=== PATIENT | male | born 1985 | race African-American/Black ===

== ENCOUNTER 2019-08-13 08:16 | Emergency (ER) | payer MEDICAID, OTHER ==
[~2019-08-13] VITALS: Ht 188 cm; Wt 81.6 kg
[2019-08-13 09:09] VITALS: BP 133/73
== END 2019-08-13 12:14 | disposition home or self-care (01) ==
LOC: ER 08:33
DX: J06.9 Acute upper respiratory infection, unspecified (principal)

== ENCOUNTER 2025-02-27 02:21 | Emergency (ER) | payer MEDICAID ==
[~2025-02-27] VITALS: Ht 188 cm; Wt 82.0 kg
[2025-02-27 02:53] LABS: Potassium 4.0 mmol/L (3.5-5.1); Sodium 141 mmol/L (136-145)
[2025-02-27 02:54] LABS: Anion Gap 10 (5-15); Calcium 9.0 mg/dL (8.7-10.4); Carbon Dioxide 24 mmol/L (20-31)
--- NOTE | 2025-02-27 02:55 | ED.PDOC ---
History of Present Illness HPI Comments 39 y/o M presents with c/c nonradiating, left chest wall pressure. Patient endorses on sudden, unprovoked, and atraumatic onset of symptom, while at rest, this morning. Significant history of HLD and TIA. Patient expresses concern following recent TIA diagnosis 1-2x months ago during a 4-5x day hospital admi ssion visit for similar pressure-sensation, with associated shortness of breath, generalized left sided numbness, and blurry vision. He reports on being told on his 'left ventricle being enlarged' and having 'fluid in surrounding heart tissue' via echocardiogram he had during aforementioned admission then. 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 Denies having any shortness of breath, nausea, vomiting, fever, chills, or further associated symptoms. Chief Complaint: Chest Pain Time Seen by MD: 02:40 Primary Care Provider: UNKNOWN Reviewed Notes: Nurses Notes, Medications, Allergies Allergies: Coded Allergies: NO KNOWN ALLERGIES (Unverified , 08/13/19) Information Source: Patient Mode of Arrival: Ambulatory Severity: Moderate Timing: Hours Duration: Since onset Prehospital treatment: None Past Medical History PAST MEDICAL HISTORY: High Lipids (homeopathically managed), TIA Surgical History: Denies all surgeries Family History Family History: Unknown Social History Smoker: Non-Smoker Alcohol: Denies ETOH Use Drugs: Denies Drug Use Lives In: Home All Other Systems: Reviewed and Negative (Comprehensive systems review obtained and negative except for what is stated in the HPI.) Physical Exam General Appearance: No Apparent Distress, Normal HEENT: Normal ENT Inspection, Pharynx Normal, TMs Normal Neck: Full Range of Motion, Non-Tender, Normal, Normal Inspection Respiratory: Chest Non-Tender, Lungs Clear, No Accessory Muscle Use, No Respiratory Distress, Normal Breath Sounds Cardiovascular: No Edema, No JVD, No Murmur, No Gallop, Normal Peripheral Pulses, Regular Rate/Rhythm Breast Exam: Deferred Gastrointestinal: No Organomegaly, Non Tender, No Pulsatile Mass, Normal Bowel Sounds, Soft Genitalia: Deferred Pelvic: Deferred Rectal: Deferred Extremities: No calf tenderness, Normal capillary refill, Normal inspection, Normal range of motion, Non-tender, No pedal edema Musculoskeletal : Apperance: Normal Neurologic: Alert, shingle cutter II-XII nml as Tested, No Motor Deficits, Normal Affect, Normal Mood, No Sensory Deficits Cerebellar Function: Normal Reflexes: Normal Skin: Dry, Normal Color, Warm Lymphatic: No Adenopathy Was a procedure done? Was a procedure done?: No EKG EKG : Pulse Rate (adult): 65 [place]: Normal Cardiac Rhythm: NSR Block: None Hypertrophy: None ST: Normal Differential Dx Considerations may include: MS, PE, ACS, URI, PNA, angina, anxiety, pericarditis, gastritis, among others X-Ray, Labs, Meds, VS Vital Signs Date Time Temp Pulse Resp B/P (MAP) Pulse Ox O2 Delivery O2 Flow Rate FiO2 02/27/25 03:22 55 02/27/25 02:55 65 02/27/25 02:25 97.4 66 20 128/72 (90) 96 97.4 02/27/25 02:25 65 Lab Test 02/27/25 04:37 02/27/25 02:28 Range/Units Troponin I High Sensitivity Pending 7 </=54 ng/L White Blood Count 6.6 4.4-10.8 10^3/uL Red Blood Count 4.94 4.5-5.90 10^6/uL Hemoglobin 13.9 13.5-17.5 g/dL Hematocrit 41.7 41.0-53.0 % Mean Corpuscular Volume 84.3 80.0-100.0 fL Mean Corpuscular Hemoglobin 28.1 28.0-32.0 pg Mean Corpuscular Hemoglobin Concent 33.4 32.0-36.0 g/dL Red Cell Distribution Width 15.0 H 11.8-14.3 % Platelet Count 198 140-450 10^3/uL Mean Platelet Volume 9.0 6.9-10.8 fL Neutrophils (%) (Auto) 64.2 37.0-80.0 % Lymphocytes (%) (Auto) 21.0 10.0-50.0 % Monocytes (%) (Auto) 14.0 H 0.0-12.0 % Eosinophils (%) (Auto) 0.4 0.0-7.0 % Basophils (%) (Auto) 0.4 0.0-2.0 % Neutrophils # (Auto) 4.2 1.6-8.6 10 ^3/uL Lymphocytes # (Auto) 1.4 0.4-5.4 10 ^3/uL Monocytes # (Auto) 0.9 0-1.3 10 ^3/uL Eosinophils # (Auto) 0 0-0.8 10 ^3/uL Basophils # (Auto) 0 0-0.2 10 ^3/uL Nucleated Red Blood Cells 0.0 % Sodium Level 141 136-145 mmol/L Potassium Level 4.0 3.5-5.1 mmol/L Chloride Level 107 98-107 mmol/L Carbon Dioxide Level 24 20-31 mmol/L Anion Gap 10 5-15 Blood Urea Nitrogen 20 9-23 mg/dL Creatinine 1.44 H 0.700-1.30 mg/dL Glomerular Filtration Rate Calc 63 >90 mL/min BUN/Creatinine Ratio 13.9 10.0-20.0 Serum Glucose 100 74-106 mg/dL Calcium Level 9.0 8.7-10.4 mg/dL Time of 1ST Reevaluation: 03:10 Reevaluation 1ST: Unchanged Patient Education/Counseling: Diagnosis, Treatment, Need For Follow Up Family Education/Counseling: No Family Present Additional Information Previous visits reviewed: August 13, 2019 encounter for body pain The following tests were ordered, and results were reviewed by me: CXR, CBC, BMP, EKG, troponin Additional Information was gathered from interviewing the following independent historians: N/A I reviewed and agreed with the following test results read by other providers: CXR I discussed treatment and results with medical personnel and: patient SEPSIS Sepsis Screen Physician Orders Electrocardigram (02/27/25 05:22) Troponin-I Hs (02/27/25 03:22) Troponin-I Hs (02/27/25 05:22) Chest Portable (02/27/25 02:24) Vital Signs Date Time Temp Pulse Resp B/P (MAP) Pulse Ox O2 Delivery O2 Flow Rate FiO2 02/27/25 03:22 55 02/27/25 02:55 65 02/27/25 02:25 97.4 66 20 128/72 (90) 96 97.4 02/27/25 02:25 65 Laboratory Tests Test 02/27/25 02:28 White Blood Count 6.6 10^3/uL (4.4-10.8) Departure 1 Departure Time of Disposition: 05:01 (Patient presented with chest pain that was concerning for possible STEMI, ACS, PE, Pneumonia, Muscle Strain, COPD, Dissection. Data: 1. I ordered and reviewed the result of at least 3 labs including a CBC, BMP, and Troponin. 2. I independently interpreted the following tests: EKG which shows normal sinus rhythm and Chest X-ray which shows a benign chest.Risk:This patient presented with a high risk of morbidity due to further diagnostic testing or treatment and may suffer from an acute cardiac or respiratory disorder. After review of all the data patient is unlikely to have a pe , dissection, and is low risk for acs. Patient is stable at this time.Workup so far is benign and patient will be discharged with outpatient followup. ) Impression: Primary Impression: Acute chest pain Disposition: HOME / SELF CARE / HOMELESS Condition: Stable Additional Instructions: You presented today with chest pain. Your workup today was benign including labs, troponin, EKG, chest x-ray. Your pain may be from musculoskeletal strain, acid reflux, anxiety, or many other factors. It is important to follow up with your regular doctor within 1 week. If your symptoms worsen or you have any other concerns please return to the emergency room. Discharged With: Self Critical Care Note Critical Care Time?: No Stability Stability form required: No Heart Score Heart Score: Heart Score Response (Comments) Value History Slightly Suspicious 0 EKG Normal 0 Age <45 0 Risk Factors 1 or 2 risk factors 1 Troponin Normal limit 0 Total 1 I personally scribed for NIHARIKA FUENTES MD ([email or web address]) on 02/27/25 at 02:55. Electronically submitted by Dany Kim [email or web address]). NIHARIKA FUENTES MD Feb 27, 2025 02:55
[2025-02-27 02:59] LABS: BUN/Creatinine Ratio 13.9 (10.0-20.0); Blood Urea Nitrogen 20 mg/dL (9-23); Chloride 107 mmol/L (98-107); Glucose 100 mg/dL (74-106)
[2025-02-27 03:04] LABS: Hematocrit 41.7 % (41.0-53.0); Hemoglobin 13.9 g/dL (13.5-17.5); Mean Corpuscular Hemoglobin 28.1 pg (28.0-32.0); Mean Corpuscular Volume 84.3 fL (80.0-100.0); Nucleated Red Blood Cells % 0.0 %
--- NOTE | 2025-02-27 03:08 | DVH ---
CHEST RADIOGRAPH Indication: chest pain Technique: Single frontal view of the chest was obtained COMPARISON: None FINDINGS: Lines and Tubes: None Lungs: Clear Pleura: No effusion. No pneumothorax. Cardiomediastinal contours: Unremarkable Bones: Unremarkable IMPRESSION: 1. No acute disease.
--- NOTE | 2025-02-27 03:25 | ECG ---
[facility] Test Date: 2025-02-27 Test Time: 03:22:37 Pat Name: KIANA GREWAL Department: ED Room: Gender: M [employer] Credit Card Collection Clerk: LINDA : 1985 Requested By: EMERGENCY EMERGENCY Order Number: [id number] Reading MD: Alex Daniels Measurements Intervals [place] Rate: 55 P: 56 RI: 153 QRS: 78 QRSD: 150 T: 82 QT: 417 QTc: 399 Interpretive Statements Sinus rhythm IVCD, consider atypical RBBB Electronically Signed On 02-28-2025 16:59:39 PDT by Alex Daniels Please click the below link to view image of tracing.
--- NOTE | 2025-02-27 03:25 | ECG ---
[facility] Test Date: 2025-02-27 Test Time: 02:25:30 Pat Name: KIANA GREWAL Department: ED Room: Gender: M [employer]ap Solution Manager Consultant: LINDA : 1985 Requested By: EMERGENCY EMERGENCY Order Number: [id number] Reading MD: Alex Daniels Measurements Intervals [place] Rate: 65 P: 55 NM: 155 QRS: 74 QRSD: 101 T: 47 QT: 378 QTc: 393 Interpretive Statements Sinus rhythm Electronically Signed On 02-28-2025 16:59:38 PDT by Alex Daniels Please click the below link to view image of tracing.
[2025-02-27 05:05] VITALS: BP 112/65; RESP 18; TEMP 97.8; O2SAT 97
[2025-02-27 05:11] VITALS: PULSE 72
== END 2025-02-27 05:12 | disposition home or self-care (01) ==
LOC: ER 02:21
DX: R07.89 Other chest pain (principal); E78.5 Hyperlipidemia, unspecified; Z86.73 Personal history of transient ischemic attack (TIA), and cerebral infarction without residual deficits
CPT/HCPCS: 36415; 71045; 80048; 84484; 85025; 93005